=== PATIENT | male | born 1975 | race Caucasian/White ===

== ENCOUNTER → 2019-01-25 | Outpatient (CLI) | payer BC ==
[2019-01-21 11:06] VITALS: BP 134/86
[~2019-01-25] MED LIST: NO HOME MEDICATIONS
== END ==
LOC: RAD 12:56
DX: R94.31 Abnormal electrocardiogram [ECG] [EKG] (principal); E78.1 Pure hyperglyceridemia; R09.89 Other specified symptoms and signs involving the circulatory and respiratory systems